=== PATIENT | female | born 1955 | race Two or more races ===

== ENCOUNTER 2017-10-28 17:01 | Emergency (ER) | payer SELFPAY ==
[~2017-10-28] VITALS: Ht 157.5 cm; Wt 49.9 kg
--- NOTE | 2017-10-28 17:15 | NUR ---
AAOX3, SENT FROM AN URGENT CARE FOR ABD PAIN W/ N/V/D X TODAY. RR IS EVEN AND UNLABORED WITH NAD NOTED. SKIN IS WARM AND DRY. AWAITING MD FOR EVAL.
[2017-10-28] MEDS ORDERED: diphenhydrAMINE HCL 50 MG/ML VIAL ONE (17:19)
[2017-10-28] MEDS ORDERED: ONDANSETRON HCL/PF 4 MG/2 ML VIAL ONE (17:20)
[2017-10-28] MEDS ORDERED: LORAZEPAM INJ 2 MG/ML VIAL ONE (17:20)
[2017-10-28] MEDS ORDERED: diphenhydrAMINE HCL 50 MG/ML VIAL IV ONE (17:30)
[2017-10-28] MEDS ORDERED: LORAZEPAM INJ 2 MG/ML VIAL IV ONE (17:30)
[2017-10-28] MEDS ORDERED: IV NS 0.9% 1,000 ML BAG IV ONE (17:30)
[2017-10-28] MEDS ORDERED: ONDANSETRON HCL/PF 4 MG/2 ML VIAL IVP ONE (17:30)
[2017-10-28 18:07] LABS: BASOPHILS % (AUTO) 0.2 % (0.0-2.0); EOSINOPHILS % (AUTO) 0.1 % (0.0-6.0); HEMATOCRIT 41 % (33-45); HEMOGLOBIN 14.2 g/dL (11.5-14.8); LYMPHOCYTES # (AUTO) 0.8 /CMM (0.8-4.8); LYMPHOCYTES % (AUTO) 6.1 % (20.0-44.0); MEAN CORPUSCULAR HEMOGLOBIN 32 PG (26.0-33.0); MEAN CORPUSCULAR HGB CONC 35 g/dl (31.0-36.0); MEAN CORPUSCULAR VOLUME 93 fL (82-100); MONOCYTES # (AUTO) 0.3 /CMM (0.1-1.30); MONOCYTES % (AUTO) 2.5 % (2.0-12.0); NEUTROPHILS # (AUTO) 11.8 /CMM (1.8-8.9); NEUTROPHILS % (AUTO) 91.1 % (43.0-81.0); PLATELET COUNT (AUTO) 383 /CMM (150-450); RDW COEFFICIENT OF VARIATION 11.8 (11.5-15.0); RED BLOOD CELL COUNT(AUTO) 4.42 MIL/uL (4.0-5.2); WHITE BLOOD COUNT (AUTO) 12.9 K/uL (4.3-11.0)
[2017-10-28 18:13] LABS: CALCIUM, SERUM 9.7 mg/dL (8.5-10.1); CREATININE 0.8 mg/dL (0.6-1.3); POTASSIUM 3.8 mmol/L (3.5-5.1)
[2017-10-28 18:19] LABS: ALBUMIN 4.2 g/dL (3.4-5.0); BILIRUBIN,DIRECT 0.2 mg/dL (0.0-0.2); BILIRUBIN,TOTAL 0.8 mg/dL (0.2-1.0); TOTAL PROTEIN, SERUM 8.6 g/dL (6.4-8.2)
--- NOTE | 2017-10-28 19:02 | NUR ---
RECEIVED REPORT FROM CHIKA GOLDEN.
--- NOTE | 2017-10-28 19:05 | NUR ---
DR. DIAZ AT BEDSIDE SPEAKING TO PT REGARDING RESULTS.
--- NOTE | 2017-10-28 19:24 | NUR ---
IV removed. Catheter intact and site benign. Pressure and 4x4 applied to site. No bleeding noted. Patient discharged to home in stable condition. Written and verbal after care instructions given. Patient verbalizes understanding of instruction. ambulatory with a steady gait. instructed pt not to drive. pt verbalize understanding.
[2017-10-28 19:25] VITALS: BP 108/75
== END 2017-10-28 19:26 | disposition home or self-care (01) ==
LOC: ER 17:04
DX: R10.84 Generalized abdominal pain (principal); R11.2 Nausea with vomiting, unspecified
CPT/HCPCS: 36415; 80048; 80076; 83690; 85025; 96361; 96374; 96375; 99284; A4606; J1200; J2060; J2405; Z7610

== ENCOUNTER 2018-10-28 08:30 | Emergency (ER) | payer SELFPAY ==
[~2018-10-28] VITALS: Ht 162.6 cm; Wt 49.9 kg
--- NOTE | 2018-10-28 08:40 | NUR ---
patient presented to the ER c/o epigastric pain with nausea. On room air, breathing evenly and unlabored. connected to the montior and pulse ox. kept comfortable, will continue to monitor accordingly.
[2018-10-28] MEDS ORDERED: LORAZEPAM 1 MG TABLET ONE (08:45)
[2018-10-28] MEDS ORDERED: FAMOTIDINE/PF INJ 20 MG/2 ML VIAL IV ONE ×2 (08:46→09:00)
[2018-10-28 08:52] LABS: BASOPHILS % (AUTO) 0.1 % (0.0-2.0); EOSINOPHILS % (AUTO) 0.1 % (0.0-6.0); HEMATOCRIT 41 % (33-45); HEMOGLOBIN 13.9 g/dL (11.5-14.8); LYMPHOCYTES # (AUTO) 0.5 /CMM (0.8-4.8); LYMPHOCYTES % (AUTO) 2.9 % (20.0-44.0); MEAN CORPUSCULAR HGB CONC 34 g/dl (31.0-36.0); MEAN CORPUSCULAR VOLUME 96 fL (82-100); MONOCYTES # (AUTO) 0.8 /CMM (0.1-1.30); MONOCYTES % (AUTO) 4.9 % (2.0-12.0); NEUTROPHILS # (AUTO) 14.5 /CMM (1.8-8.9); PLATELET COUNT (AUTO) 288 /CMM (150-450); RED BLOOD CELL COUNT(AUTO) 4.22 MIL/uL (4.0-5.2); WHITE BLOOD COUNT (AUTO) 15.8 K/uL (4.3-11.0)
[2018-10-28 08:58] LABS: CALCIUM, SERUM 9.2 mg/dL (8.5-10.1); CARBON DIOXIDE 26 mmol/L (21-32); CHLORIDE 107 mmol/L (98-107); CREATININE 0.8 mg/dL (0.6-1.3); GLUCOSE 127 mg/dL (74-106); SODIUM SERUM 141 mmol/L (136-145); UREA NITROGEN, BLOOD 19 mg/dL (7-18)
[2018-10-28] MEDS ORDERED: IBUP-1957 PO (08:58)
[2018-10-28] MEDS ORDERED: PENI500T PO (08:58)
[2018-10-28] MEDS ORDERED: LORAZEPAM 1 MG TABLET PO ONE (09:00)
[2018-10-28 09:04] LABS: ALANINE AMINOTRANSFERASE 22 U/L (12-78); ALBUMIN 4.1 g/dL (3.4-5.0); ALCOHOL, BLOOD < 3 mg/dL (0-0); ALKALINE PHOSPHATASE 61 U/L (46-116); ASPARTATE AMINOTRANSFERASE 23 U/L (15-37); BILIRUBIN,DIRECT 0.2 mg/dL (0.0-0.2); BILIRUBIN,TOTAL 0.7 mg/dL (0.2-1.0); TOTAL PROTEIN, SERUM 7.8 g/dL (6.4-8.2)
--- NOTE | 2018-10-28 09:13 | NUR ---
urine collected and sent to lab.
[2018-10-28 09:21] LABS: APPEARANCE,URINE Clear (CLEAR); BILIRUBIN,URINE Negative (NEGATIVE); BLOOD, URINE Moderate Ery/uL (NEGATIVE); COLOR,URINE Yellow (YELLOW); KETONES,URINE Negative (NEGATIVE); LEUKOCYTE ESTERASE ,URINE Negative (NEGATIVE); NITRITE, URINE Negative (NEGATIVE); PH,URINE 7.5 (5.0-8.0); PROTEIN,URINE Negative (NEGATIVE); UGLUCOSE Negative (NEGATIVE); UROBILINOGEN,URINE 0.2 EU/dL (0.2)
[2018-10-28 09:26] LABS: BACTERIA,URINE None seen /HPF (None Seen); RBC,URINE 15-20 /HPF (0-2); SQUAMOUS EPITHELIAL CELL,UR Few /HPF (None Seen); WBC,URINE 0-3 /HPF (0-3)
[2018-10-28 10:00] VITALS: BP 124/75
--- NOTE | 2018-10-28 10:08 | NUR ---
IV removed. Catheter intact and site benign. Pressure and 4x4 applied to site. No bleeding noted.Patient discharged to home in stable condition. Written and verbal after care instructions given. Patient verbalizes understanding of instruction.
== END 2018-10-28 10:12 | disposition home or self-care (01) ==
LOC: ER 08:33
DX: K29.70 Gastritis, unspecified, without bleeding (principal); F41.9 Anxiety disorder, unspecified; Z88.2 Allergy status to sulfonamides; Z88.1 Allergy status to other antibiotic agents; Z79.899 Other long term (current) drug therapy
CPT/HCPCS: 36415; 74176; 80048; 80076; 80305; 80307; 81001; 85025; 96374; 99284; A4606; J3490; 81000-TC; G0480

== ENCOUNTER 2022-01-01 03:38 | Emergency (ER) | payer SELFPAY ==
[~2022-01-01] VITALS: Ht 162.6 cm; Wt 52.2 kg
[~2022-01-01 03:38] MED LIST: IBUP-1957 PO; PENI500T PO
--- NOTE | 2022-01-01 03:55 | NUR ---
BIBS. A/OX3 C/O ABD PAIN, HOT & COLD FLASHES, SORETHROAT STARTED EARLIER TODAY. PT STATES HAS HX OF GASTRITIS
[2022-01-01] MEDS ORDERED: LIDOCAINE VISCOUS 2% UD 15 ML UDC MM ONE (04:00)
[2022-01-01] MEDS ORDERED: MAG HYDROX/AL HYDROX/SIMETH 30 ML UDC ONE (04:00)
[2022-01-01] MEDS ORDERED: ONDANSETRON 4 MG TAB.RAPDIS SL ONE (04:00)
[2022-01-01] MEDS ORDERED: LIDOCAINE VISCOUS 2% UD 15 ML UDC ONE (04:00)
[2022-01-01] MEDS ORDERED: MAG HYDROX/AL HYDROX/SIMETH 30 ML UDC PO ONE (04:00)
[2022-01-01] MEDS ORDERED: ONDANSETRON 4 MG TAB.RAPDIS ONE (04:01)
--- NOTE | 2022-01-01 04:10 | NUR ---
URINE COLLECTED AND SENT TO LAB
[2022-01-01 04:27] LABS: BASOPHILS % (AUTO) 0.2 % (0.0-2.0); EOSINOPHILS % (AUTO) 0.2 % (0.0-6.0); HEMATOCRIT 39 % (33-45); HEMOGLOBIN 13.5 g/dL (11.5-14.8); LYMPHOCYTES # (AUTO) 0.2 K/uL (0.8-4.8); LYMPHOCYTES % (AUTO) 2.5 % (20.0-44.0); MEAN CORPUSCULAR HGB CONC 35 g/dl (31.0-36.0); MEAN CORPUSCULAR VOLUME 96 fL (82-100); MONOCYTES # (AUTO) 0.6 K/uL (0.1-1.30); MONOCYTES % (AUTO) 6.3 % (2.0-12.0); NEUTROPHILS % (AUTO) 90.8 % (43.0-81.0); PLATELET COUNT (AUTO) 307 K/uL (150-450); RED BLOOD CELL COUNT(AUTO) 4.08 MIL/uL (4.0-5.2); WHITE BLOOD COUNT (AUTO) 8.8 K/uL (4.3-11.0)
[2022-01-01 04:27] LABS: BILIRUBIN,URINE NEGATIVE (NEGATIVE); LEUKOCYTE ESTERASE ,URINE NEGATIVE (NEGATIVE); NITRITE, URINE NEGATIVE (NEGATIVE); PROTEIN,URINE NEGATIVE (NEGATIVE); UGLUCOSE NEGATIVE (NEGATIVE); UROBILINOGEN,URINE 0.2 EU/dL (0.2)
[2022-01-01 04:32] LABS: COLOR,URINE LIGHT YELLOW (YELLOW)
[2022-01-01 04:33] LABS: CALCIUM, SERUM 9.1 mg/dL (8.5-10.1); CREATININE 0.9 mg/dL (0.6-1.3); POTASSIUM 3.4 mmol/L (3.5-5.1)
[2022-01-01 04:40] LABS: BILIRUBIN,DIRECT 0.1 mg/dL (0.0-0.2); BILIRUBIN,TOTAL 0.7 mg/dL (0.2-1.0); TOTAL PROTEIN, SERUM 7.8 g/dL (6.4-8.2)
[2022-01-01] MEDS ORDERED: DICY20TA11 PO (05:15)
[2022-01-01] MEDS ORDERED: FAMO-131 PO (05:15)
[2022-01-01] MEDS ORDERED: MAG-55 PO (05:15)
[2022-01-01] MEDS ORDERED: ACETAMINOPHEN ES 500 MG TABLET ONE (05:20)
[2022-01-01] MEDS ORDERED: METOCLOPRAMIDE HCL 10 MG TABLET ONE (05:20)
[2022-01-01] MEDS ORDERED: ACETAMINOPHEN ES 500 MG TABLET PO ONE (05:30)
[2022-01-01] MEDS ORDERED: METOCLOPRAMIDE HCL 10 MG TABLET PO ONE (05:30)
--- NOTE | 2022-01-01 06:12 | NUR ---
Pt discharged in stable condition
[2022-01-01 06:14] VITALS: BP 109/68
[2022-01-01 06:29] LABS: BACTERIA,URINE Few /HPF (None Seen); SQUAMOUS EPITHELIAL CELL,UR Few /HPF (None Seen); WBC,URINE 0-2 /HPF (0-3)
== END 2022-01-01 06:16 | disposition home or self-care (01) ==
LOC: ER 03:43
DX: K29.70 Gastritis, unspecified, without bleeding (principal); Z88.2 Allergy status to sulfonamides; Z88.8 Allergy status to other drugs, medicaments and biological substances; Z79.899 Other long term (current) drug therapy
CPT/HCPCS: 36415; 80048; 80076; 81001; 83690; 85025; 99285; J8597; Q0162